=== PATIENT | female | born 1980 | race Caucasian/White ===

== ENCOUNTER 2017-09-15 13:34 | Emergency (ER) | payer SELFPAY ==
[~2017-09-15] VITALS: Ht 160 cm; Wt 56.8 kg
[2017-09-15 13:44] VITALS: BP 113/73
[2017-09-15] MEDS ORDERED: KETOROLAC 30 MG/1 ML IM ONE (15:00)
[2017-09-15] MEDS ORDERED: KETOROLAC 30 MG/1 ML ONE (15:21)
== END 2017-09-15 17:38 | disposition home or self-care (01) ==
LOC: ED 17:34
DX: M72.2 Plantar fascial fibromatosis (principal)
CPT/HCPCS: 73630; 73700; 93971; 96372; 99284; J1885